=== PATIENT | male | born 1995 | race Caucasian/White ===

== ENCOUNTER 2017-07-15 22:14 | Emergency (ER) | payer OTHER ==
[~2017-07-15] VITALS: Ht 172.7 cm; Wt 97.6 kg
[2017-07-15 22:19] VITALS: Ht 172.7 cm; Wt 97.6 kg
[2017-07-15 22:46] VITALS: TEMP 37.2
[2017-07-15] MEDS ORDERED: IBUPROFEN 600 MG TAB PO STA (22:58)
[2017-07-15] MEDS ORDERED: ACETAMINOPHEN 500 MG TAB PO STA (22:58)
[2017-07-16 00:29] VITALS: BP 127/78; PULSE 84; O2SAT 97
--- NOTE | 2017-07-16 07:15 | DIAGNOSTIC IMAGING REPORT ---
R WRIST MIN 3 VIEWS ROUTINE CLINICAL HISTORY: right wrist injury RIGHT WRIST PAIN COMPARISON: None. DISCUSSION: The bones and joint spaces appear intact. There is no evidence of fracture, dislocation or bony disease. There is no evidence for soft tissue swelling. IMPRESSION: No fractures or dislocations identified. Electronically signed by: Rafael Ness M.D. 07/16/2017 7:14 AM Dictated Date/Time: 07/16/2017 7:13 AM
--- NOTE | 2017-07-16 07:26 | DIAGNOSTIC IMAGING REPORT ---
R SHOULDER MIN 2 VIEWS ROUTINE CLINICAL HISTORY: Right shoulder pain status post trauma COMPARISON: None. DISCUSSION: No acute fractures or dislocations are visualized. IMPRESSION: No acute fractures or dislocations identified. Electronically signed by: Rafael Ness M.D. 07/16/2017 7:25 AM Dictated Date/Time: 07/16/2017 7:24 AM
--- NOTE | 2017-07-16 08:16 | DIAGNOSTIC IMAGING REPORT ---
LEFT SHOULDER 3 VIEWS CLINICAL HISTORY: Left shoulder injury. FINDINGS: 3 views of the left shoulder are obtained. No prior studies are available for comparison at the time of dictation. The skeletal structures are well mineralized. No fracture is seen. The glenohumeral articulation is preserved. There is mild superior subluxation of the clavicle at the acromioclavicular joint. The overlying soft tissues are within normal limits. The visualized left lung parenchyma appears clear. IMPRESSION: 1. There is no radiographic evidence of left shoulder fracture. 2. Mild superior subluxation of the clavicle is suggested at the AC joint. Correlate clinically for evidence of shoulder separation. Electronically signed by: Eleuterio Maravilla M.D. 07/16/2017 8:15 AM Dictated Date/Time: 07/16/2017 8:14 AM
--- NOTE | 2017-07-16 08:51 | EMERGENCY ROOM VISIT NOTE ---
ED Visit Note Patient was seen last night by Rajesh Nuñez x-rays of the shoulder show possible left AC subluxation. D[place] with [place] [facility] [place] having him followed up within the week as an outpatient. Judd Hester who is her charge nurse call him back and set this outpatient follow-up.
--- NOTE | 2017-07-17 00:06 | EMERGENCY ROOM VISIT NOTE ---
History First contact with patient: 22:50 Chief Complaint: ARM PAIN Stated Complaint: SORE ARMS AND SHOULDERS History of Present Illness The patient is a 22 year old male who presents to the Emergency Room with complaints of lateral shoulder pain as well as right wrist pain after drinking himself this evening. Evidently the patient was running from a pit bull that was trying to attack him. The patient climbed over a 4 foot fence, and fell to the ground. The patient did not suffer bite from the animal. He did not suffer laceration or abrasion. He did not strike his head. He does have some vague discomfort when moving his arms. He does not report other injury and rates his overall discomfort 2/10. Review of Systems More than 10 systems were reviewed and otherwise negative with the exception of history of present illness. Past Medical/Surgical History Medical Problems: (1) No Known Active Medical Problems Family History No pertinent family history Social History Smoking Status: Never Smoker Alcohol Use: occasionally Drug Use: none Marital Status: single Housing Status: lives with friends Current/Historical Medications No Active Prescriptions or Reported Meds Physical Exam Vital Signs Date Time Temp Pulse Resp B/P (MAP) Pulse Ox O2 Delivery O2 Flow Rate FiO2 07/16/17 00:29 84 16 127/78 97 Room Air 07/15/17 22:46 37.2 18 22:19 38.1 103 20 151/92 96 Room Air Physical Exam VITALS: Vitals are noted on the nurse's note and reviewed by myself. Vital signs stable. GENERAL: Well-developed, well-nourished, white male, who is in no acute distress and resting comfortably. Patient is cooperative with the examination. NECK: Supple without nuchal rigidity. No lymphadenopathy. No thyromegaly. Cervical spine is nontender. HEART: Regular rate and rhythm without murmurs gallops or rubs. LUNGS: Clear to auscultation bilaterally without wheezes, rales or rhonchi. No retractions or accessory muscle use. . MUSCULOSKELETAL: No muscle atrophy, erythema, or edema noted. No distinct tenderness throughout the right or left scapula. No significant clavicular tenderness or step-off. Negative became bilateral. Full range of motion appreciated the bilateral shoulders. There is mild right wrist tenderness at the distal radius. No snuffbox tenderness. Painter Foreman strength is 5/5. No lacerations or deformity appreciated throughout. NEURO: Patient was alert and oriented to person place and time. CN II through XII grossly intact. Medical Decision & Procedures ER Provider Diagnostic Interpretation: LEFT SHOULDER 3 VIEWS CLINICAL HISTORY: Left shoulder injury. FINDINGS: 3 views of the left shoulder are obtained. No prior studies are available for comparison at the time of dictation. The skeletal structures are well mineralized. No fracture is seen. The glenohumeral articulation is preserved. There is mild superior subluxation of the clavicle at the acromioclavicular joint. The overlying soft tissues are within normal limits. The visualized left lung parenchyma appears clear. IMPRESSION: 1. There is no radiographic evidence of left shoulder fracture. 2. Mild superior subluxation of the clavicle is suggested at the AC joint. Correlate clinically for evidence of shoulder separation. R SHOULDER MIN 2 VIEWS ROUTINE CLINICAL HISTORY: Right shoulder pain status post trauma COMPARISON: None. DISCUSSION: No acute fractures or dislocations are visualized. IMPRESSION: No acute fractures or dislocations identified. R WRIST MIN 3 VIEWS ROUTINE CLINICAL HISTORY: right wrist injury RIGHT WRIST PAIN COMPARISON: None. DISCUSSION: The bones and joint spaces appear intact. There is no evidence of fracture, dislocation or bony disease. There is no evidence for soft tissue swelling. IMPRESSION: No fractures or dislocations identified. Medications Administered Medications (Trade) Dose Ordered Sig/Yassine Route Start Time Stop Time Status Last Admin Dose Admin Acetaminophen (Tylenol Tab) 1,000 mg NOW STAT PO 07/15/17 22:58 07/15/17 23:00 DC 07/15/17 23:09 1,000 MG Ibuprofen (Motrin Tab) 600 mg NOW STAT PO 07/15/17 22:58 07/15/17 23:00 DC 07/15/17 23:08 600 MG ED Course Physical exam and history were performed. Nursing notes, EMR, and Medication List were personally reviewed. Patient appears to have suffered injuries after running from a dog this evening. The patient was given Advil Tylenol here in the department. X-rays were performed and reviewed by myself and my attending as showing no obvious fracture with official radiology read pending. The patient did not have any worsening of his symptoms. He overall appears well for discharge home. He'll be treated conservatively invited back to the ER with any new, worsening, or concerning symptoms. The chart was completed utilizing [employer] Voice Recognition Software. Grammatical errors, random word insertions, pronoun errors, and incomplete sentences are an occasional consequence of this system due to software limitations, ambient noise, and hardware issues. Any formal questions or concerns about the content, text, or information contained within the body of this dictation should be directly addressed to the provider for clarification. . Medical Decision Differential diagnosis includes, but is not limited to: Sprain, strain, fracture , dislocation, subluxation, contusion, and others Impression Primary Impression: Bilateral shoulder pain Additional Impression: Wrist injury Departure Information Dispostion Home / Self-Care Condition GOOD Prescriptions No Active Prescriptions or Reported Meds Forms HOME CARE DOCUMENTATION FORM, IMPORTANT VISIT INFORMATION Patient Instructions My [facility] Additional Instructions You were seen and evaluated today on an emergency basis only. This is not a substitute for, or an effort to provide, complete comprehensive medical care. It is not possible to recognize and treat all injuries or illnesses in a single emergency department visit. For this reason it is recommended that you followup with your primary care for this week with any ongoing or persistent symptoms. For baseline pain relief you may alternate ibuprofen and acetaminophen every 4 hours for pain control. Take 600 mg ibuprofen (Advil) and then 4 hours later take 1000 mg acetaminophen (Tylenol). Do not take more than 3000 mg acetaminophen in a single day. You are welcome to return to the emergency department anytime with new, worsening, or concerning symptoms. Problem Qualifiers
== END 2017-07-16 00:34 | disposition home or self-care (01) ==
LOC: C.EDB 22:15
DX: M25.511 Pain in right shoulder (principal); M25.512 Pain in left shoulder; S69.91XA Unspecified injury of right wrist, hand and finger(s), initial encounter; W17.89XA Other fall from one level to another, initial encounter; Y93.02 Activity, running; Y93.39 Activity, other involving climbing, rappelling and jumping off; Y99.8 Other external cause status